=== PATIENT | female | born 1950 | race Caucasian/White ===

== ENCOUNTER 2021-08-17 09:13 | Observation (INO) | payer OTHER ==
[2021-08-14 10:12] LABS: BASOPHILS % (AUTO) 0.6 % (0.0-5.0); EOSINOPHILS % (AUTO) 2.3 % (0.0-8.0); HEMATOCRIT 39.2 % (36-48); LYMPHOCYTES % (AUTO) 48.1 % (21.0-51.0); MEAN CORPUSCULAR HEMOGLOBIN 31.4 pg (27.0-33.0); MEAN CORPUSCULAR HGB CONC 30.4 g/dL (32.0-36.0); MEAN CORPUSCULAR VOLUME 103.4 fL (79-99); MONOCYTES % (AUTO) 9.4 % (3.0-13.0); NEUTROPHILS % (AUTO) 39.4 % (40.0-77.0); PLATELET COUNT (AUTO) 229 K/uL (130-400); RED BLOOD CELL COUNT(AUTO) 3.79 MIL/uL (4.00-5.50); RED CELL DISTRIBUTION WIDTH 13.5 % (11.0-15.5); WHITE BLOOD COUNT (AUTO) 6.2 K/uL (4.8-10.8)
[2021-08-14 10:24] LABS: INR 1.09 (0.85-1.15); PROTHROMBIN TIME 11.8 SEC (9.6-11.6)
[2021-08-14 10:26] LABS: CREATININE 1.7 mg/dL (0.5-1.5); POTASSIUM 4.5 mmol/L (3.5-5.1)
[2021-08-14 11:38] LABS: APPEARANCE,URINE Clear (CLEAR); BILIRUBIN,URINE Negative (NEGATIVE); COLOR,URINE Yellow (YELLOW); GLUCOSE, URINE (UA) Negative (NEGATIVE); KETONES,URINE Negative (NEGATIVE); LEUKOCYTE ESTERASE ,URINE Trace (NEGATIVE); NITRATE,URINE Negative (NEGATIVE); OCCULT BLOOD,URINE Negative (NEGATIVE); PH,URINE 6.5 (5.0-8.0); PROTEIN,URINE Negative (NEGATIVE); UROBILINOGEN,URINE 0.2 mg/dL (0.2-1.0)
[2021-08-14 11:52] LABS: BACTERIA,URINE Rare /HPF (None Seen); RBC,URINE 0-1 /HPF (0-1); SQUAMOUS EPITHELIAL CELL,UR 0-2 /HPF (0-2); WBC,URINE 0-1 /HPF (0-1)
[2021-08-17] VITALS (21 sets, daily range): BP systolic 105–180; BP diastolic 36–84
[~2021-08-17] VITALS: Ht 160 cm; Wt 90.7 kg
[~2021-08-17 09:13] MED LIST: ALPR0.5T PO; CITA10TA89 PO; DULO20CA18 PO; GABA300C PO; MEMA5TAB42 PO; TRAM100T40 PO
[2021-08-17] MEDS ORDERED: PROPOFOL 10 MG/ML 20ML VIAL IV ONE (09:44)
[2021-08-17] MEDS ORDERED: FENTANYL CITRATE PF 50 MCG/1 ML 2ML VIAL ONE ×3 (09:45→10:40)
[2021-08-17] MEDS ORDERED: MIDAZOLAM HCL 1 MG/ML 2ML VIAL ONE (09:45)
[2021-08-17] MEDS ORDERED: TRANEXAMIC ACID 1000MG/10ML ONE ×2 (09:51→14:11)
[2021-08-17] MEDS ORDERED: CEFAZOLIN SODIUM 1 GM VIAL ONE (09:51)
[2021-08-17] MEDS ORDERED: LACTATED RINGERS 1000ML 1,000 ML IV ONE (10:02)
[2021-08-17] MEDS ORDERED: CLINDAMYCIN IVPB 900MG/50ML 50 ML IV ONE (10:02)
[2021-08-17] MEDS ORDERED: ACETAMINOPHEN 500 MG TABLET ONE (10:10)
[2021-08-17] MEDS ORDERED: CELECOXIB 200 MG CAP ONE (10:11)
[2021-08-17] MEDS ORDERED: OXYCODONE HCL 10 MG TAB.SR.12H PO ONE (10:11)
[2021-08-17] MEDS ORDERED: ROPIVACAINE 0.5% 5MG/ML 30ML IJ ONE (10:17)
[2021-08-17] MEDS ORDERED: DEXAMETHASONE SOD PHOSPHATE 10MG/ML 1ML VIAL ONE (10:18)
[2021-08-17] MEDS ORDERED: ONDANSETRON 4MG INJ ONE (10:24)
[2021-08-17] MEDS ORDERED: ROCURONIUM 10MG/1ML SYR 10 MG/ML ML ONE ×2 (10:52→11:45)
[2021-08-17] MEDS ORDERED: EPHEDRINE SULFATE 50 MG/ML AMPULE ONE (11:27)
[2021-08-17] MEDS ORDERED: CLINDAMYCIN 900MG/6ML INJ ONE (11:29)
[2021-08-17] MEDS ORDERED: MEPERIDINE-PF 25 MG/ML SYG ONE ×3 (12:49→14:35)
[2021-08-17] MEDS ORDERED: GLYCOPYRROLATE 1 MG/5 ML SYRINGE ONE (13:37)
[2021-08-17] MEDS ORDERED: NEOSTIGMINE 5MG/5ML SYR IV ONE (13:37)
[2021-08-17] MEDS ORDERED: POTASSIUM CHLORIDE 20MEQ/100ML 100 ML IV PRN (14:00)
[2021-08-17] MEDS ORDERED: KCL 20 MEQ ERTAB PO PRN (14:00)
[2021-08-17] MEDS ORDERED: DiphenhydrAMINE HCL 50 MG/ML VIAL IVP PRN (14:00)
[2021-08-17] MEDS: ACETAMINOPHEN 500 MG TABLET PO SCH ×2 (14:00→21:35)
[2021-08-17] MEDS ORDERED: ONDANSETRON 4MG INJ IVP PRN (14:00)
[2021-08-17] MEDS ORDERED: POTASSIUM CHLORIDE 10% ELIXIR 20 MEQ/15 ML UDCUP PO PRN (14:00)
[2021-08-17] MEDS: 0.9%NACL 1000ML 1,000 ML IV SCH (14:00)
[2021-08-17] MEDS ORDERED: FERROUS FUMARATE 324 MG TABLET PO PRN (14:00)
[2021-08-17] MEDS ORDERED: LIDOCAINE HCL-MPF 1% 2ML VIAL IV PRN (14:00)
[2021-08-17] MEDS ORDERED: CALCIUM CARB 500MG PO PRN (14:00)
[2021-08-17] MEDS: OXYCODONE HCL 5 MG TAB PO PRN ×2 (16:20→23:46)
[2021-08-17] MEDS: CLINDAMYCIN IVPB 900MG/50ML 50 ML IV SCH (18:09)
[2021-08-17] MEDS: TRAMADOL HCL 50 MG TABLET PO PRN (18:13)
[2021-08-17] MEDS: ALPRAZOLAM 0.5 MG TABLET PO SCH (21:30)
[2021-08-17] MEDS: GABAPENTIN 300 MG CAPSULE PO SCH (21:30)
[2021-08-17] MEDS: CELECOXIB 200 MG CAP PO SCH (21:30)
[2021-08-18] VITALS (7 sets, daily range): BP systolic 116–152; BP diastolic 56–74
[2021-08-18] MEDS: CLINDAMYCIN IVPB 900MG/50ML 50 ML IV SCH (02:54)
[2021-08-18] MEDS: 0.9%NACL 1000ML 1,000 ML IV SCH (03:00)
[2021-08-18 03:55] LABS: HEMATOCRIT 30.7 % (36-48); MEAN CORPUSCULAR HEMOGLOBIN 31.5 pg (27.0-33.0); MEAN CORPUSCULAR VOLUME 105.1 fL (79-99); RED BLOOD CELL COUNT(AUTO) 2.92 MIL/uL (4.00-5.50); RED CELL DISTRIBUTION WIDTH 13.2 % (11.0-15.5); WHITE BLOOD COUNT (AUTO) 8.1 K/uL (4.8-10.8)
[2021-08-18 04:05] LABS: CREATININE 1.7 mg/dL (0.5-1.5); POTASSIUM 5.3 mmol/L (3.5-5.1)
[2021-08-18] MEDS: OXYCODONE HCL 5 MG TAB PO PRN ×4 (04:13→22:03)
[2021-08-18] MEDS: ACETAMINOPHEN 500 MG TABLET PO SCH ×3 (06:38→22:01)
[2021-08-18] MEDS: TRAMADOL HCL 50 MG TABLET PO PRN (06:38)
[2021-08-18] MEDS: **HM**(Duloxetine HCl 20 MG PO SCH (09:00)
[2021-08-18] MEDS: MEMANTINE HCL 5 MG TABLET PO SCH (09:09)
[2021-08-18] MEDS: FAMOTIDINE 20MG TAB PO SCH (09:11)
[2021-08-18] MEDS: CITALOPRAM 20 MG TABLET PO SCH (09:11)
[2021-08-18] MEDS: GABAPENTIN 300 MG CAPSULE PO SCH ×2 (09:11→22:02)
[2021-08-18] MEDS: CELECOXIB 200 MG CAP PO SCH ×2 (09:11→22:02)
[2021-08-18] MEDS: POLYETHYLENE GLYCOL 3350 17 GM POWD.PACK PO SCH (09:13)
[2021-08-18] MEDS: APIXABAN 2.5 MG TABLET PO SCH ×2 (09:16→22:02)
[2021-08-18] MEDS ORDERED: HYDROMORPHONE 1 MG INJ ONE (09:28)
[2021-08-18] MEDS: HYDROMORPHONE 1 MG INJ IVP PRN ×2 (13:25→19:25)
[2021-08-18] MEDS ORDERED: APIX2.5T PO (17:43)
[2021-08-18] MEDS ORDERED: HYDR-4060 PO (17:43)
[2021-08-18] MEDS: ALPRAZOLAM 0.5 MG TABLET PO SCH (22:01)
[2021-08-19 04:33] VITALS: BP 159/64
[2021-08-19] MEDS: OXYCODONE HCL 5 MG TAB PO PRN ×2 (04:37→08:19)
[2021-08-19] MEDS: ACETAMINOPHEN 500 MG TABLET PO SCH ×2 (06:42→14:09)
[2021-08-19 07:30] VITALS: BP 140/78
[2021-08-19] MEDS: **HM**(Duloxetine HCl 20 MG PO SCH (09:00)
[2021-08-19] MEDS: CITALOPRAM 20 MG TABLET PO SCH (09:33)
[2021-08-19] MEDS: GABAPENTIN 300 MG CAPSULE PO SCH (09:33)
[2021-08-19] MEDS: CELECOXIB 200 MG CAP PO SCH (09:33)
[2021-08-19] MEDS: FAMOTIDINE 20MG TAB PO SCH (09:33)
[2021-08-19] MEDS: APIXABAN 2.5 MG TABLET PO SCH (09:33)
[2021-08-19] MEDS: POLYETHYLENE GLYCOL 3350 17 GM POWD.PACK PO SCH (09:33)
[2021-08-19] MEDS: MEMANTINE HCL 5 MG TABLET PO SCH (09:33)
[2021-08-19] MEDS: HYDROMORPHONE 1 MG INJ IVP PRN (09:34)
[2021-08-19 11:03] VITALS: BP 110/50
[2021-08-19] MEDS: TRAMADOL HCL 50 MG TABLET PO PRN (14:07)
[2021-08-19 15:51] VITALS: BP 124/80
[2021-08-20] MEDS ORDERED: BISACODYL 10 MG SUPP.RECT RC PRN (14:00)
== END 2021-08-19 18:00 | disposition home health service (06) ==
LOC: DAH 09:13 → DAHIP 09:14 → 4AH 15:03
PROVIDERS: ADMIT Orthopaedic Surgery; ATTEND Orthopaedic Surgery
DX: M17.12 Unilateral primary osteoarthritis, left knee (principal); Z20.822 Contact with and (suspected) exposure to COVID-19; R26.89 Other abnormalities of gait and mobility; G89.4 Chronic pain syndrome; I12.9 Hypertensive chronic kidney disease with stage 1 through stage 4 chronic kidney disease, or unspecified chronic kidney disease; N18.30 Chronic kidney disease, stage 3 unspecified; M23.8X2 Other internal derangements of left knee; D64.9 Anemia, unspecified; Z90.710 Acquired absence of both cervix and uterus; Z90.49 Acquired absence of other specified parts of digestive tract; Z79.899 Other long term (current) drug therapy; Z98.890 Other specified postprocedural states
CPT/HCPCS: 27447; 36415 ×2; 64447; 76942; 80048 ×2; 81001; 85025; 85027; 85610; 87088; 87635; 87641; 96365; 96366; 96375; 96376 ×2; 97039 ×4; 97116 ×4; 97161; 97530 ×4; A4215; A4221; A4222; A4223; A4649 ×5; A4663; A4930 ×2; A5120; A9272; C1776; C9803; G0378 ×49; J0690; J1100; J1170 ×4; J2175 ×3; J2250; J2405; J2704; J2710; J2795; J3010 ×3; J3490 ×7; J7030; J7120 ×2